=== PATIENT | female | born 1965 | race Caucasian/White ===

== ENCOUNTER 2019-09-30 03:35 | Emergency (ER) | payer BC ==
[~2019-09-30] VITALS: Ht 154.9 cm; Wt 61.2 kg
[2019-09-30 05:21] VITALS: BP 112/67
== END 2019-09-30 05:21 | disposition home or self-care (01) ==
LOC: ED 03:35
DX: F41.9 Anxiety disorder, unspecified (principal); R06.4 Hyperventilation; I10 Essential (primary) hypertension; Z88.0 Allergy status to penicillin; Z98.51 Tubal ligation status
CPT/HCPCS: J2060

== ENCOUNTER 2019-11-13 01:11 | Emergency (ER) | payer BC ==
[~2019-11-13] VITALS: Ht 154.9 cm; Wt 62.1 kg
[2019-11-13 01:41] VITALS: BP 107/76; Ht 154.9 cm; Wt 62.1 kg
== END 2019-11-13 05:00 | disposition home or self-care (01) ==
LOC: ED 01:11
DX: Z53.21 Procedure and treatment not carried out due to patient leaving prior to being seen by health care provider (principal)